=== PATIENT | male | born 1980 | race Caucasian/White ===

== ENCOUNTER 2017-03-01 14:29 | Emergency (ER) | payer BC ==
[2017-03-01 15:15] VITALS: BP 143/80
--- NOTE | 2017-03-01 15:44 | UC ---
Respiratory Complaint HPI - HPI Summary HPI Summary: 36 YEAR OLD MALE PRESENTS WITH COMPLAINS OF COUGH AND CHEST CONGESTION. - History of Current Complaint Chief Complaint: UCGeneralIllness Stated Complaint: CHEST CONGESTION,COUGH,EAR(S) Time Seen by Provider: 03/01/17 15:42 Hx Obtained From: Patient Onset/Duration: Sudden Onset Severity Initially: Moderate Severity Currently: Moderate Pain Scale Used: 0-10 Numeric - 5 Character: Cough: Nonproductive Alleviating Factors: Bronchodilator Associated Signs And Symptoms: Positive: Wheezing, Nasal Congestion - Allergies/Home Medications Allergies/Adverse Reactions: Allergies Allergy/AdvReac Type Severity Reaction Status Date / Time Cephalexin Allergy Rash Verified 03/01/17 15:15 Penicillins Allergy Anaphylatic Verified 03/01/17 15:15 Shock nuts, beestings Allergy Anaphylatic Uncoded 03/01/17 15:15 Shock PMH/Surg Hx/FS Hx/Imm Hx Previously Healthy: Yes - Surgical History Surgical History: Yes Surgery Procedure, Year, and Place: appy - Family History Known Family History: Positive: Hypertension, Other - breast CA - Social History Alcohol Use: Occasionally Substance Use Type: None Smoking Status (MU): Light Every Day Tobacco Smoker Type: Cigarettes Amount Used/How Often: 1 pack per week When Did the Patient Quit Smoking/Using Tobacco: 2 weeks ago Household Exposure Type: Cigarettes - Immunization History Most Recent Influenza Vaccination: NOT THIS SEASON Review of Systems Constitutional: Negative Skin: Negative Eyes: Negative ENT: Sinus Congestion, Sinus Pain/Tenderness Respiratory: Cough Cardiovascular: Negative Gastrointestinal: Negative Genitourinary: Negative Motor: Negative Neurovascular: Negative Musculoskeletal: Negative Neurological: Negative Psychological: Negative All Other Systems Reviewed And Are Negative: Yes Physical Exam Triage Information Reviewed: Yes Vital Signs: Initial Vital Signs Temp 37.0 C 03/01/17 15:11 Pulse 97 03/01/17 15:11 Resp 18 03/01/17 15:11 BP 143/80 03/01/17 15:11 Pulse Ox 97 03/01/17 15:11 Vital Signs Reviewed: Yes Eye Exam: Normal ENT: Positive: Pharyngeal erythema, Nasal congestion, Nasal drainage Dental Exam: Normal Neck exam: Normal Neck: Positive: 1 Respiratory: Positive: Rhonchi, Wheezing Cardiovascular Exam: Normal Abdominal Exam: Normal Musculoskeletal Exam: Normal Neurological Exam: Normal Psychological Exam: Normal Skin Exam: Normal UC Diagnostic Evaluation - Laboratory O2 Sat by Pulse Oximetry: 97 Respiratory Course/Dx - Differential Dx/Diagnosis Provider Diagnoses: CHEST CONGESTION. COUGH Discharge - Discharge Plan Condition: Stable Disposition: HOME Prescriptions: Albuterol HFA INHALER* [Ventolin HFA Inhaler*] 1 puff INH Q6H PRN #1 mdi PRN Reason: Wheezing Azithromyxin SANDIP (NF) [Z-Sandip (Zithromax) 250 mg tabs #6] 2 tab PO .TODAY, THEN 1 DAILY #6 tab Guaifenesin-Codeine [Cheratussin AC] 1 teasp PO Q8H PRN #120 syp MDD 15 ml PRN Reason: Cough LoraTADine TAB(NF) [Claritin 10 MG TAB(NF)] 10 mg PO DAILY #30 tab Methylprednisolone [Medrol Dosepak 4 MG*] 4 mg PO .SEE SANDIP INSTRUCTION #21 tab Patient Education Materials: Acute Bronchitis (ED) Referrals: No Primary Care Phys,NOPCP [Primary Care Provider] -
== END 2017-03-01 15:52 | disposition home or self-care (01) ==
LOC: UCCORT 14:29
DX: R09.89 Other specified symptoms and signs involving the circulatory and respiratory systems (principal); R05 Cough; Z90.89 Acquired absence of other organs; Z88.1 Allergy status to other antibiotic agents; Z88.0 Allergy status to penicillin; F17.210 Nicotine dependence, cigarettes, uncomplicated
CPT/HCPCS: 99212; G0463

== ENCOUNTER 2017-12-12 14:51 | Emergency (ER) | payer SELFPAY ==
[2017-12-12 15:47] VITALS: BP 119/69
--- NOTE | 2017-12-12 15:50 | UC ---
General HPI - HPI Summary HPI Summary: 37 yo male presents with chest congestion, cough, fever, body aches, and chills for the last 3 days. He has been taking mucinex and ibuprofen with no relief. He does smoke, but says he has not smoked in the last 3 days due to illness. Denies sore throat, SOB, chest pain, abdominal pain, n/v. - History of Current Complaint Chief Complaint: UCRespiratory Stated Complaint: FEVER, ACHES, CONGESTION Time Seen by Provider: 12/12/17 15:49 Hx Obtained From: Patient Onset/Duration: Gradual Onset Onset Severity: Severe Current Severity: Severe Pain Intensity: 8 - Allergy/Home Medications Allergies/Adverse Reactions: Allergies Allergy/AdvReac Type Severity Reaction Status Date / Time Penicillins Allergy Severe Anaphylatic Verified 12/12/17 15:39 Shock cephalexin Allergy Unknown Rash Verified 12/12/17 15:39 nuts, beestings Allergy Anaphylatic Uncoded 12/12/17 15:39 Shock Home Medications: Home Medications GuaiFENesin DM* [Robitussin DM*] 10 ml PO Q6H PRN 12/12/17 [History Confirmed ] Ibuprofen TAB* [Advil TAB*] 600 mg PO Q6H PRN 12/12/17 [History Confirmed ] PMH/Surg Hx/FS Hx/Imm Hx - Additional Past Medical History Additional PMH: None - Surgical History Surgical History: Yes Surgery Procedure, Year, and Place: appy - Family History Known Family History: Positive: Hypertension, Other - breast [place] - Social History Occupation: Employed Full-time Lives: With Family Alcohol Use: Occasionally Substance Use Type: None Smoking Status (MU): Light Every Day Tobacco Smoker Type: Cigarettes Amount Used/How Often: 1 pack per week When Did the Patient Quit Smoking/Using Tobacco: 2 weeks ago Household Exposure Type: Cigarettes - Immunization History Most Recent Influenza Vaccination: NOT THIS SEASON Review of Systems Constitutional: Fever, Chills, Fatigue, Other - Body aches Skin: Negative Eyes: Negative ENT: Negative Respiratory: Cough Cardiovascular: Negative Gastrointestinal: Negative Genitourinary: Negative Musculoskeletal: Negative Neurological: Negative Psychological: Negative All Other Systems Reviewed And Are Negative: Yes Physical Exam - Summary Physical Exam Summary: GENERAL: NAD. WDWN. SKIN: No rashes, sores, lesions, or open wounds. HEENT: Head: AT/NC Eyes: Conjunctiva clear without inflammation or discharge. Ears: Hearing grossly normal. TMs intact, no bulging, erythema, or edema. Nose: Nasal mucosa pink and moist. NTTP maxillary and frontal sinus. Throat: Posterior oropharynx without exudates, erythema, or tonsillar enlargement. Uvula midline. NECK: Supple. Nontender. No lymphadenopathy. CHEST: Left lung with rales at base. Diffuse mild wheezing through right and left lung. No accessory muscle use. Breathing comfortably and in no distress. CV: RRR. Without m/r/g. Pulses intact. Cap refill <2seconds NEURO: Alert. PSYCH: Age appropriate behavior. Triage Information Reviewed: Yes Vital Signs: Initial Vital Signs Temp 100.1 F 12/12/17 15:41 Pulse 89 12/12/17 15:41 Resp 18 12/12/17 15:41 BP 119/69 12/12/17 15:41 Pulse Ox 96 12/12/17 15:41 Vital Signs Reviewed: Yes Course/Dx - Course Course Of Treatment: CXR: IMPRESSION: Findings consistent with left lower lobe pneumonia. He was given a duoneb treatment in the clinic with mild relief - reports easier work of breathing and able to take a deep breath. Lung sounds moderately improved with less wheezing. Will rx for doxycycline and advise him to f/u in 4-6 weeks for recheck. - Differential Dx - Multi-Symptom Provider Diagnoses: LLL PNA Discharge - Sign-Out/Discharge Documenting (check all that apply): Patient Departure All imaging exams completed and their final reports reviewed: Yes - Discharge Plan Condition: Stable Disposition: HOME Prescriptions: DOXYcycline CAP(*) [DOXYcycline 100MG CAP(*)] 100 mg PO BID #14 cap Patient Education Materials: Pneumonia (ED) Forms: *Work Release Referrals: No Primary Care Phys,NOPCP [Primary Care Provider] - Additional Instructions: If you develop a fever, shortness of breath, chest pain, new or worsening symptoms - please call your PCP or go to the ED. - Billing Disposition and Condition Condition: STABLE Disposition: Home - Attestation Statements Provider Attestation: I was available for consult. This patient was seen by the PRAVEEN. The patient was not presented to, seen by, or examined by me. -Ridge
[2017-12-12] MEDS ORDERED: Ibuprofen TAB* 600 MG PO ONE (16:20)
[2017-12-12] MEDS ORDERED: Albuterol/Ipratropium NEB.SOL* Albuterol 2.5 MG/Ipratropium 0.5 MG 3 ML INH ONE (16:20)
--- NOTE | 2017-12-12 17:07 | RAD ---
Indication: Cough. 2 views of the chest are reviewed. Comparison is made with previous exam dated November 30, 2015. There is airspace disease in the superior segment of the left lower lobe consistent with left lower lobe pneumonia. Right lung field is clear. IMPRESSION: Findings consistent with left lower lobe pneumonia.
== END 2017-12-12 17:02 | disposition home or self-care (01) ==
LOC: UCCORT 14:51
DX: J18.9 Pneumonia, unspecified organism (principal); F17.210 Nicotine dependence, cigarettes, uncomplicated; Z88.0 Allergy status to penicillin; Z88.1 Allergy status to other antibiotic agents; Z91.030 Bee allergy status; Z91.018 Allergy to other foods
CPT/HCPCS: 71046; 99212; A9270-GY; G0463